=== PATIENT | female | born 1950 | race Caucasian/White ===

== ENCOUNTER 2022-05-16 12:12 | Day surgery (SDC) | payer OTHER ==
[~2022-05-16] VITALS: Ht 160 cm; Wt 56.3 kg
[2022-05-16] VITALS (13 sets, daily range): BP systolic 102–126; BP diastolic 61–86
[2022-05-16] MEDS ORDERED: normal saline 1000ml 1,000 ML IV SCH (12:40)
[2022-05-16] MEDS ORDERED: MIDAZolam 1mg/ml 10ml vial IV ONE (12:40)
[2022-05-16] MEDS ORDERED: fentaNYL/PF 50MCG/1 ML 2ML syringe IV ONE (12:40)
[2022-05-16] MEDS ORDERED: SPIR50TA5 PO (12:47)
[2022-05-16] MEDS ORDERED: DULO60CA65 PO (12:47)
[2022-05-16] MEDS ORDERED: METO-411 PO (12:47)
[2022-05-16] MEDS ORDERED: TRAZ-256 PO (12:53)
[2022-05-16] MEDS ORDERED: ATOR20TA66 PO (12:53)
[2022-05-16] MEDS ORDERED: LAMO200T10 PO (12:53)
[2022-05-16] MEDS ORDERED: LAN0.125T PO (12:53)
[2022-05-16] MEDS ORDERED: PANT-47 PO (12:54)
== END 2022-05-16 17:00 | disposition home or self-care (01) ==
LOC: SSTAY O 12:12
PROVIDERS: ATTEND Student in an Organized Health Care Education/Training Program
DX: I48.20 Chronic atrial fibrillation, unspecified (principal); I34.81 Nonrheumatic mitral (valve) annulus calcification; G47.33 Obstructive sleep apnea (adult) (pediatric); I10 Essential (primary) hypertension; Z86.73 Personal history of transient ischemic attack (TIA), and cerebral infarction without residual deficits; Z79.82 Long term (current) use of aspirin; Z79.899 Other long term (current) drug therapy; F32.A Depression, unspecified; Z98.890 Other specified postprocedural states; Z88.8 Allergy status to other drugs, medicaments and biological substances
CPT/HCPCS: 93312; 93325; 94760; J2250; J3010; J7030; A4620